=== PATIENT | female | born 1955 | race Caucasian/White ===

== ENCOUNTER 2024-03-22 07:48 | Emergency (ER) | payer MEDICARE, OTHER ==
[~2024-03-22] VITALS: Ht 162.6 cm; Wt 68.0 kg
[2024-03-22 12:18] VITALS: BP 106/69
== END 2024-03-22 12:20 | disposition home or self-care (01) ==
LOC: ER 07:48
DX: R07.89 Other chest pain (principal)

== ENCOUNTER → 2024-11-02 | Outpatient (CLI) | payer MEDICARE, OTHER ==
[~2024-11-02] MED LIST: Ativan1 MG PO; ESCI10 PO; IMITREX50 M2 PO; MELO7.5 PO; METOPROLOL TART25 MG PO; NITROGLYCERIN0.4 M3 SL
== END | disposition home or self-care (01) ==
LOC: LAB 17:30 → LAB SHORT 17:30
DX: R30.0 Dysuria (principal)
CPT/HCPCS: 87077; 87086; 87186